=== PATIENT | male | born 1955 | race Caucasian/White ===

== ENCOUNTER 2018-08-04 11:30 | Inpatient (IN) | payer OTHER ==
[~2018-08-04] VITALS: Ht 175.3 cm; Wt 87.1 kg
[2018-08-04] MEDS ORDERED: SYNTHROID50 MCG PO (15:29)
[2018-08-04] MEDS ORDERED: SYNTHROID137 MCG PO (16:07)
[2018-08-12] MEDS ORDERED: INTEGRA PLUS C1 EACH PO (07:47)
[2018-08-12] MEDS ORDERED: XARELTO10 MG PO (07:47)
[2018-08-12] MEDS ORDERED: OXYC1TAB9 PO (07:47)
== END 2018-08-13 13:53 | DRG 470 ==
LOC: O/R 08-10 09:30 → SURG 08-10 09:30 → SURH 08-10 11:00 → SURG 08-10 19:14
PROVIDERS: ADMIT Orthopaedic Surgery Sports Medicine
PROC: 0SR903Z Replacement of Right Hip Joint with Ceramic Synthetic Substitute, Open Approach (ICD-10-PCS; principal; 2018-08-10 11:00)
DX: M87.351 Other secondary osteonecrosis, right femur (principal); E03.8 Other specified hypothyroidism